=== PATIENT | male | born 2000 | race Caucasian/White ===

== ENCOUNTER 2022-02-10 23:38 | Emergency (ER) | payer SELFPAY ==
[~2022-02-10] VITALS: Ht 172.7 cm; Wt 61.2 kg
[2022-02-10 23:47] VITALS: BP 118/64
[2022-02-11 00:30] VITALS: BP 118/64
--- NOTE | 2022-02-11 00:30 | NUR ---
Patient discharged with v/s stable. Written and verbal after care instructions given and explained. Patient verbalized understanding. Ambulatory with steady gait. All questions addressed prior to discharge. Advised to follow up with PMD.
== END 2022-02-11 00:30 | disposition home or self-care (01) ==
LOC: MED 23:38
DX: S00.83XA Contusion of other part of head, initial encounter (principal); X58.XXXA Exposure to other specified factors, initial encounter; Y93.89 Activity, other specified; Y92.89 Other specified places as the place of occurrence of the external cause; Y99.8 Other external cause status
CPT/HCPCS: 99282